=== PATIENT | male | born 1985 | race African-American/Black ===

== ENCOUNTER 2016-10-25 05:03 | Emergency (ER) | payer OTHER ==
[2016-10-25 05:14] VITALS: BP 142/102
[2016-10-25] MEDS ORDERED: Lidocaine 1% 10 ML MDV INJECT ONE (05:35)
[2016-10-25] MEDS ORDERED: Lidocaine 1% 50 ML MDV ONE (05:39)
--- NOTE | 2016-10-25 05:40 | EDM.PDOC ---
ED HPI Skin/Rash - General Chief Complaint: Laceration Stated Complaint: LEFT ARM LACERATION Time Seen by Provider: 10/25/16 05:25 Source: Reports: Patient History Limitations: Reports: No limitations - History of Present Illness INITIAL COMMENTS - FREE TEXT/NARRATIVE: 31-year-old male presents the ED with work-related injury. He works at [employer]. States the axilla slipped with a supervisor mattress and boxsprings and lacerated the volar aspect of his proximal left forearm. He is right-hand dominant he suffered a proximally 4 cm laceration part of which is superficial and part of which is subcutaneous. He came [place] the [place] and for the immigration service would've had his tetanus and diphtheria and pertussis vaccinations updated at that time. Symptom Onset Date: 10/25/16 Symptom Onset Time: 04:50 Timing: Reports: still present Location, Skin: Reports: upper extremity, left (left volar proximal forearm.) Quality: Reports: Ache, Burning Severity: moderate Known Identified Source: yes (box cut her knife) Place of Occurrence: work Sick Contact: no Associated Symptoms: Reports: no other symptoms Similar Symptoms Previously: no Recent Medical Care: no Treatments DIRECTOR STATISTICAL PROGRAMMING: Reports: Other (see below) (none) - Related Data Allergies Allergy/AdvReac Type Severity Reaction Status Date / Time No Known Allergies Allergy Verified 10/25/16 05:14 Home Meds: Ambulatory Orders Medication Instructions Recorded Confirmed . [No Known Home Meds] 10/25/16 10/25/16 Past Medical History - Past Health History Medical/Surgical History: Denies Medical/Surgical History Social & Family History - Tobacco Use Smoking Status *Q: Never Smoker Years of Tobacco use: 2 Packs/Tins Daily: 1 Used Tobacco, but Quit: No Second Hand Smoke Exposure: No - Caffeine Use Caffeine Use: Reports: None - Recreational Drug Use Recreational Drug Use: No - Living Situation & Occupation Occupation: employed ED ROS GENERAL - Review of Systems Review Of Systems: See Below Constitutional: Reports: no symptoms Respiratory: Reports: no symptoms Endocrine: Reports: no symptoms GI/Abdominal: Reports: No symptoms : Reports: no symptoms Musculoskeletal: Reports: no symptoms Skin: Reports: no symptoms Neurological: Reports: no symptoms Hematologic/Lymphatic: Reports: no symptoms Immunologic: Reports: no symptoms ED EXAM, SKIN/RASH Exam: See Below Exam Limited By: No limitations General Appearance: alert, WD/WN, no apparent distress Extremities: other (semination was limited to his left forearm. He suffered a 4 cm laceration to the medial volar aspect of the proximal forearm.v 2.5 cm of this is subcutaneous and then a 1.5 cm is more superficial and will not require laceration repair. Wound was fairly actively bleeding but has now stopped.) Neurological: alert, oriented, CN II-XII intact, normal cognition, normal gait Psychiatric: normal affect, normal mood Skin: Warm, Dry, Intact, Normal color, No rash ED SKIN PROCEDURES - Laceration/Wound Repair Left Upper Anterior Medial Proximal Arm Lac/wound length in cm: 2.5 (2.5 cm laceration volar medial proximal left forearm) Appearance: subcutaneous, clean Distal NVT: neuro & vascular intact Anesthetic type: local Local anesthesia - Lidocaine (Xylocaine): 1% plain Local anesthetic volume: 3cc Skin prep: saline Suture size: 4-0 # of sutures: 5 Suture type: nylon, interrupted, simple Course - Vital Signs Last Recorded V/S: Last Vital Signs Temp 36.1 C 10/25/16 05:11 Pulse 71 10/25/16 05:11 Resp 18 10/25/16 05:11 BP 142/102 H 10/25/16 05:11 Pulse Ox 98 10/25/16 05:11 - Orders/Labs/Meds Meds: Medications Discontinued Medications Generic Name Dose Route Start Last Admin Trade Name Sultana PRN Reason Stop Dose Admin Lidocaine HCl 50 ml 10/25/16 05:35 Xylocaine 1% INJECT 10/25/16 05:36 ONETIME ONE Lidocaine HCl Confirm 10/25/16 05:39 10/25/16 05:57 Xylocaine 1% Administered 10/25/16 05:40 50 ml Dose Administration 50 ml .ROUTE .STK-MED ONE - Radiology Interpretation Free Text/Narrative:: 31-year-old male arrives in the ED with a work-related injury. He slipped with a supervisor mattress and boxsprings while working at [employer] and suffered a 4 cm linear laceration to the medial volar proximal aspect of his left forearm. Approximately 2.5 cm of this wound is subcutaneous and the rest is more superficial. He required repair of the subcutaneous portion of the laceration.it is believed is tenderness diphtheria and pertussis vaccines were updated when he went to the immigration service entered the country in 2012. - Re-Assessments/Exams Free Text/Narrative Re-Assessment/Exam: 10/25/16 06:00l Laceration left proximal medial forearm was cleansed and then the subcutaneous portionof the wound was sutured x5 sutures.patient was very apprehensive about receiving the lidocaine. The wound is to be cleansed daily with soap and water. Showering is okay. Then apply topical antibiotic such as bacitracin or Polysporin to the wound once daily and cover with bandage to keep clean. This will need to be removed in 10 days' time. Departure - Departure Time of Disposition: 06:01 Disposition: Home, Self-Care 01 Condition: fair Clinical Impression: Laceration of forearm, left Qualifiers: Encounter type: initial encounter Qualified Code(s): S51.812A - Laceration without foreign body of left forearm, initial encounter Instructions: Laceration Care, Adult, [id number] Referrals: PCP,None [Primary Care Provider] - Forms: ED Department Discharge Additional Instructions: evaluation in the emergency department today in regards to work related injury to the left forearm. Slipped with supervisor mattress and boxsprings knife with resultant linear laceration to the volar aspect of the proximal left forearm. Part of the wound was deeper than the rest. This wound was cleansed and then sutured under local anesthetic x5 sutures. Treatment at home is daily cleanse wound soap and water. Showering is okay. Then apply topical antibiotic such as bacitracin or Polysporin to the once daily and cover with a bandage to keep clean. May remain open to the air as long as it's not going to be exposed to anything that would contaminate the wound. Sutures are to be removed in 10 days' time. Seek medical attention sooner if you see any signs of infection such as increased redness swelling or obvious pus.
== END 2016-10-25 06:12 | disposition home or self-care (01) ==
LOC: JD.ED 05:03
DX: S51.812A Laceration without foreign body of left forearm, initial encounter (principal); W27.8XXA Contact with other nonpowered hand tool, initial encounter; Y92.69 Other specified industrial and construction area as the place of occurrence of the external cause; Y99.0 Civilian activity done for income or pay
CPT/HCPCS: 12001; 12002; 99282-25; 99283-25